=== PATIENT | male | born 1985 | race Two or more races ===

== ENCOUNTER 2017-08-03 09:37 | Emergency (ER) | payer SELFPAY ==
[2017-08-03] MEDS ORDERED: Ondansetron 4 MG Tab.DIS PO ONE (10:34)
--- NOTE | 2017-08-03 10:38 | EDM.PDOC ---
ED HPI GENERAL MEDICAL PROBLEM - General Chief Complaint: Gastrointestinal Problem Stated Complaint: SORETHRAOT,FLU-LIKE SYMPTOMS Time Seen by Provider: 08/03/17 10:05 Source of Information: Reports: Patient History Limitations: Reports: No Limitations - History of Present Illness INITIAL COMMENTS - FREE TEXT/NARRATIVE: HISTORY AND PHYSICAL: History of present illness: [Patient comes to the emergency room complaining of body aches, fatigue, fever, nausea and vomiting, headache and sore throat for the past 36 hours. Son is also with him with similar symptoms today. Other children have been ill recently but their symptoms have completely resolved. Patient has not checked his temperature but has felt feverish alternating with chills. Has had several episodes of vomiting as recent as this morning. Has muscle and joint aches and pains. No constipation diarrhea or abdominal pain. Nausea continues. Has had decreased appetite due to illness.] Review of systems: As per history of present illness and below otherwise all systems reviewed and negative. Past medical history: As per history of present illness and as reviewed below otherwise noncontributory. Surgical history: As per history of present illness and as reviewed below otherwise noncontributory. Social history: No reported history of drug or alcohol abuse. Family history: As per history of present illness and as reviewed below otherwise noncontributory. Physical exam: Gen.: Well-developed well-nourished male in no acute distress. Appears nontoxic and engages in conversation with examiner appropriately. HEENT: Atraumatic, normocephalic. TMs pearly vega without erythema. Eyes are injected and appeared tired. Oral mucous membranes are pink and moist. Tonsils are nurse moderately swollen with yellow thick exudate present. Lungs: Clear to auscultation, breath sounds equal bilaterally. No wheezing crackles or rales. Heart: S1S2, regular rate and rhythm. Abdomen: Soft, nondistended, nontender. Pelvis: Stable nontender. Genitourinary: Deferred. Rectal: Deferred. Extremities: Atraumatic, no abnormalities Neurovascular unremarkable. Neuro: Awake, alert, oriented. Motor and sensory unremarkable throughout. Exam nonfocal. Diagnostics: [Influenza swab, strep swab] Therapeutics: [Zofran 4 mg ODT] Impression: [Streptococcal pharyngitis] Plan: [Rx for Pen-VK is e-prescribed to [facility]. Supportive measures are discussed. Follow-up with PCP strict return precautions reviewed. Patient verbalized understanding of today's plan.] Definitive disposition and diagnosis as appropriate pending reevaluation and review of above. Generalized Pain Score (Numeric/FACES): 5 - Related Data Allergies Allergy/AdvReac Type Severity Reaction Status Date / Time No Known Allergies Allergy Verified 08/03/17 10:06 Home Meds: Home Meds Penicillin V Potassium [IJD: Penicillin V Potassium] 500 mg PO TID #30 tab 08/03 [Rx] Past Medical History - Past Health History Medical/Surgical History: Denies Medical/Surgical History - Past Surgical History GI Surgical History: Reports: Cholecystectomy Social & Family History - Tobacco Use Smoking Status *Q: Never Smoker - Caffeine Use Caffeine Use: Reports: Coffee, Energy Drinks - Recreational Drug Use Recreational Drug Use: No ED ROS ENT - Review of Systems Review Of Systems: ROS reveals no pertinent complaints other than HPI. ED EXAM, ENT - Physical Exam Exam: See Below Course - Vital Signs Last Recorded V/S: Last Vital Signs Temp 97.9 F 08/03/17 10:01 Pulse 100 08/03/17 10:01 Resp 20 08/03/17 10:01 BP 119/73 08/03/17 10:01 Pulse Ox 96 08/03/17 10:01 - Orders/Labs/Meds Meds: Medications Discontinued Medications Generic Name Dose Route Start Last Admin Trade Name [place] PRN Reason Stop Dose Admin Ondansetron HCl 4 mg 08/03/17 10:34 08/03/17 10:41 Zofran Odt PO 08/03/17 10:35 4 mg ONETIME ONE Administration Departure - Departure Time of Disposition: 11:00 Disposition: Home, Self-Care 01 Condition: Good Clinical Impression: Strep throat - Discharge Information Prescriptions: Penicillin V Potassium [IJD: Penicillin V Potassium] 500 mg PO TID #30 tab Referrals: PCP,None [Primary Care Provider] - Raúl Deleon MD [Resident] - Forms: ED Department Discharge, ED Department Discharge Additional Instructions: The following information is given to patients seen in the emergency department who are being discharged to home. This information is to outline your options for follow-up care. We provide all patients seen in our emergency department with a follow-up referral. The need for follow-up, as well as the timing and circumstances, are variable depending upon the specifics of your emergency department visit. If you don't have a primary care physician on staff, we will provide you with a referral. We always advise you to contact your personal physician following an emergency department visit to inform them of the circumstance of the visit and for follow-up with them and/or the need for any referrals to a consulting specialist. The emergency department will also refer you to a specialist when appropriate. This referral assures that you have the opportunity for follow-up care with a specialist. All of these measure are taken in an effort to provide you with optimal care, which includes your follow-up. Under all circumstances we always encourage you to contact your private physician who remains a resource for coordinating your care. When calling for follow-up care, please make the office aware that this follow-up is from your recent emergency room visit. If for any reason you are refused follow-up, please contact the [facility] emergency department at and asked to speak to the emergency department charge nurse. [facility] [address] [place] [id number] Follow-up with your primary care provider or at the clinic listed above in 48- 72 hours. Taken antibiotic as prescribed. Push fluids, get plenty of rest. Return to ER as needed as discussed.
== END 2017-08-03 11:35 | disposition home or self-care (01) ==
LOC: MW.ED 09:37
DX: J02.0 Streptococcal pharyngitis (principal)
CPT/HCPCS: 87804; 87880; 99283; A9270

== ENCOUNTER 2018-08-08 16:00 | Emergency (ER) | payer BC ==
--- NOTE | 2018-08-08 16:21 | EDM.PDOC ---
ED HPI GENERAL MEDICAL PROBLEM - General Chief Complaint: General Stated Complaint: TOOTHACHE Time Seen by Provider: 08/08/18 16:19 Source of Information: Reports: Patient History Limitations: Reports: No Limitations - History of Present Illness INITIAL COMMENTS - FREE TEXT/NARRATIVE: HISTORY AND PHYSICAL: History of present illness: Patient is a 33-year-old male who presents to the emergency room with complaints of dental pain. He states he had right upper dental pain 3 weeks and had initially made a dental appointment but had skipped this for unknown reason. He states that the right upper dental pain is now resolving but has pain to the left upper dental line. He tried to contact the dentist who encouraged him to take Tylenol and ibuprofen. He states he has been using this routinely but it still causes a lot of pain. He has not yet made an appointment for follow-up. He denies any fever, chills, chest pain, shortness of breath or cough. Denies any GI or symptoms. He has been eating and drinking appropriately. Review of systems: As per history of present illness and below otherwise all systems reviewed and negative. Past medical history: As per history of present illness and as reviewed below otherwise noncontributory. Surgical history: As per history of present illness and as reviewed below otherwise noncontributory. Social history: See social history for further information Family history: As per history of present illness and as reviewed below otherwise noncontributory. Physical exam: General: Well-developed and well nourished 33-year-old male. Alert and oriented. Nontoxic appearing and in no acute distress. HEENT: Atraumatic, normocephalic, pupils equal and reactive bilaterally, negative for conjunctival pallor or scleral icterus, mucous membranes moist, TMs normal bilaterally, throat clear, tooth #14 and 15 do appear erythematous along the upper gumline and tender with palpation, neck supple, nontender, trachea midline. No drooling or trismus noted. No meningeal signs. No hot potato voice noted. Lungs: Clear to auscultation, breath sounds equal bilaterally, chest nontender. Heart: S1S2, regular rate and rhythm without overt murmur Abdomen: Soft, nondistended, nontender. Negative for masses or hepatosplenomegaly. Negative for costovertebral tenderness. Pelvis: Stable nontender. Genitourinary: Deferred. Rectal: Deferred. Skin: Intact, warm, dry. No lesions or rashes noted. Extremities: Atraumatic, negative for cords or calf pain. Neurovascular unremarkable. Neuro: Awake, alert, oriented. Cranial nerves II through XII unremarkable. Cerebellum unremarkable. Motor and sensory unremarkable throughout. Exam nonfocal. Diagnostics: None Therapeutics: None Prescription: Pen VK Tramadol Impression: Dental abscess Plan: 1. Please take the medications as prescribed. 2. Tylenol and/or ibuprofen as needed for pain management. 3. Follow-up with a dentist for definitive care. Return to the ED as needed and as discussed. Definitive disposition and diagnosis as appropriate pending reevaluation and review of above. Left Upper Tooth/Teeth Pain Score (Numeric/FACES): 8 - Related Data Allergies Allergy/AdvReac Type Severity Reaction Status Date / Time No Known Allergies Allergy Verified 08/08/18 16:26 Home Meds: Home Meds Penicillin V Potassium [Veetids] 500 mg PO TID 10 Days #30 tab 08/08/18 [Rx] traMADol [Ultram] 50 mg PO Q6H PRN #15 tab 08/08/18 [Rx] Past Medical History - Past Health History Medical/Surgical History: Denies Medical/Surgical History - Past Surgical History GI Surgical History: Reports: Cholecystectomy Social & Family History - Caffeine Use Caffeine Use: Reports: Coffee, Energy Drinks ED ROS GENERAL - Review of Systems Review Of Systems: ROS reveals no pertinent complaints other than HPI. ED EXAM, GENERAL - Physical Exam Exam: See Below (See dication) Course - Vital Signs Last Recorded V/S: Last Vital Signs Temp 98.2 F 08/08/18 16:24 Pulse 66 08/08/18 16:24 Resp 18 08/08/18 16:24 BP 137/89 08/08/18 16:24 Pulse Ox 97 08/08/18 16:24 Departure - Departure Time of Disposition: 16:30 Disposition: Home, Self-Care 01 Clinical Impression: Dental abscess - Discharge Information Prescriptions: Penicillin V Potassium [Veetids] 500 mg PO TID 10 Days #30 tab traMADol [Ultram] 50 mg PO Q6H PRN #15 tab PRN Reason: Pain Instructions: Dental Abscess, [id number] Referrals: PCP,None [Primary Care Provider] - Forms: ED Department Discharge Additional Instructions: The following information is given to patients seen in the emergency department who are being discharged to home. This information is to outline your options for follow-up care. We provide all patients seen in our emergency department with a follow-up referral. The need for follow-up, as well as the timing and circumstances, are variable depending upon the specifics of your emergency department visit. If you don't have a primary care physician on staff, we will provide you with a referral. We always advise you to contact your personal physician following an emergency department visit to inform them of the circumstance of the visit and for follow-up with them and/or the need for any referrals to a consulting specialist. The emergency department will also refer you to a specialist when appropriate. This referral assures that you have the opportunity for follow-up care with a specialist. All of these measure are taken in an effort to provide you with optimal care, which includes your follow-up. Under all circumstances we always encourage you to contact your private physician who remains a resource for coordinating your care. When calling for follow-up care, please make the office aware that this follow-up is from your recent emergency room visit. If for any reason you are refused follow-up, please contact the [facility] Emergency Department at and asked to speak to the emergency department charge nurse. [facility] [address] [place] [address] [id number] [address] [address] 1. Please take the medications as prescribed. 2. Tylenol and/or ibuprofen as needed for pain management. 3. Follow-up with a dentist for definitive care. Return to the ED as needed and as discussed.
== END 2018-08-08 16:42 | disposition home or self-care (01) ==
LOC: MW.ED 16:00
DX: K04.7 Periapical abscess without sinus (principal); Z90.49 Acquired absence of other specified parts of digestive tract
CPT/HCPCS: 99282

== ENCOUNTER 2018-08-25 18:56 | Emergency (ER) | payer BC ==
--- NOTE | 2018-08-25 19:23 | EDM.PDOC ---
ED HPI GENERAL MEDICAL PROBLEM - General Chief Complaint: ENT Problem Stated Complaint: SORE THOAT, AND TEETH HURT Time Seen by Provider: 08/25/18 19:22 Source of Information: Reports: Patient History Limitations: Reports: No Limitations - History of Present Illness INITIAL COMMENTS - FREE TEXT/NARRATIVE: HISTORY AND PHYSICAL: History of present illness: Patient is a 33-year-old male who presents to emergency room today with concerns of sore throat and tooth pain. Patient states that his son was in the ED yesterday and had tested positive for strep throat. He states today he saw an oral surgeon but has to wait for surgery to get a tooth removed that is broken. He states that the tooth is swollen and is causing him significant pain. He states that he's had a sore throat since yesterday. That is tooth pain is significantly worse today. Patient denies fever, chills, difficulty swallowing, decreased appetite, nausea , vomiting, or any other GI or symptoms. Denies any health history. Review of systems: As per history of present illness and below otherwise all systems reviewed and negative. Past medical history: As per history of present illness and as reviewed below otherwise noncontributory. Surgical history: As per history of present illness and as reviewed below otherwise noncontributory. Social history: See social history for further information Family history: As per history of present illness and as reviewed below otherwise noncontributory. Physical exam: General: Well-developed and well-nourished 33-year-old male. Alert and oriented. Nontoxic appearing and in no acute distress. HEENT: Atraumatic, normocephalic, pupils equal and reactive bilaterally, negative for conjunctival pallor or scleral icterus, mucous membranes moist, TMs normal bilaterally, throat moderately erythematous with enlarged tonsils neck supple, nontender, trachea midline. No drooling or trismus noted. No meningeal signs. No hot potato voice noted. Tooth # 16 was cracked without any nerve root exposed. There is some mild edema surrounding the cracked tooth and up into the surrounding soft tissue without erythema. Lungs: Clear to auscultation, breath sounds equal bilaterally, chest nontender. Heart: S1S2, regular rate and rhythm without overt murmur Abdomen: Soft, nondistended, nontender. Negative for masses or hepatosplenomegaly. Negative for costovertebral tenderness. Pelvis: Stable nontender. Genitourinary: Deferred. Rectal: Deferred. Skin: Intact, warm, dry. No lesions or rashes noted. Extremities: Atraumatic, negative for cords or calf pain. Neurovascular unremarkable. Neuro: Awake, alert, oriented. Cranial nerves II through XII unremarkable. Cerebellum unremarkable. Motor and sensory unremarkable throughout. Exam nonfocal. Notes: Because patient has had contact with strep, we will treat accordingly and given an antibiotic that will also cover for the tooth. Tramadol was provided for use for moderate to severe pain. Discussed using Tylenol and ibuprofen for mild to moderate pain. Dental balls were also provided while in the emergency room for pain relief. Diagnostics: None Therapeutics: Dental balls Prescription: Augmentin, tramadol #15 Impression: Pharyngitis [place] tooth fracture Plan: 1. Please take the antibiotic as prescribed. Please get a new toothbrush once your antibiotics has been started to avoid re-contamination. Warm saltwater gargle and rinse and spit several times per day as able. 2. Tylenol and/or ibuprofen as needed for pain management. Tramadol for moderate to severe pain. This medication may cause drowsiness a do not take it will driving her needing to be functioning outside of the house. 3. Follow-up with your primary care provider in the next 1-2 days. Follow-up with your dentist as you already have planned for further evaluation and management of your wisdom tooth. Return to the ED as needed and as discussed. Definitive disposition and diagnosis as appropriate pending reevaluation and review of above. Left Upper Tooth/Teeth Pain Score (Numeric/FACES): 4 - Related Data Allergies Allergy/AdvReac Type Severity Reaction Status Date / Time No Known Allergies Allergy Verified 08/25/18 19:06 Home Meds: Home Meds Amoxicillin/Potassium Clav [Augmentin 875-125 Tablet] 1 each PO BID 10 Days #20 tablet 08/25/18 [Rx] traMADol [Ultram] 50 mg PO Q4H PRN #15 tab 08/25/18 [Rx] Past Medical History - Past Health History Medical/Surgical History: Denies Medical/Surgical History HEENT History: Reports: None Cardiovascular History: Reports: None Respiratory History: Reports: None Gastrointestinal History: Reports: None Genitourinary History: Reports: None Musculoskeletal History: Reports: None Neurological History: Reports: None Psychiatric History: Reports: None Endocrine/Metabolic History: Reports: None Hematologic History: Reports: None Immunologic History: Reports: None Oncologic (Cancer) History: Reports: None Dermatologic History: Reports: None - Infectious Disease History Infectious Disease History: Reports: None - Past Surgical History Head Surgeries/Procedures: Reports: None GI Surgical History: Reports: Cholecystectomy Social & Family History - Family History Family Medical History: Noncontributory - Tobacco Use Smoking Status *Q: Never Smoker Second Hand Smoke Exposure: No - Caffeine Use Caffeine Use: Reports: Coffee - Recreational Drug Use Recreational Drug Use: No ED ROS ENT - Review of Systems Review Of Systems: ROS reveals no pertinent complaints other than HPI. ED EXAM, ENT - Physical Exam Exam: See Below (see dictation) Course - Vital Signs Last Recorded V/S: Last Vital Signs Temp 97.4 F 08/25/18 19:06 Pulse 69 08/25/18 19:06 Resp 16 08/25/18 19:06 BP 112/79 08/25/18 19:06 Pulse Ox 97 08/25/18 19:06 - Orders/Labs/Meds Meds: Medications Discontinued Medications Generic Name Dose Route Start Last Admin Trade Name Freq PRN Reason Stop Dose Admin Benzocaine 2 each 08/25/18 19:26 08/25/18 19:56 Hurricaine One 20% MUCMEM 08/25/18 19:27 2 each ONETIME ONE Administration Lidocaine HCl 15 ml 08/25/18 19:26 08/25/18 19:56 Xylocaine 2% Viscous PO 08/25/18 19:27 15 ml ONETIME ONE Administration Departure - Departure Time of Disposition: 19:35 Disposition: Home, Self-Care 01 Clinical Impression: Tooth fracture Pharyngitis Qualifiers: Pharyngitis/tonsillitis etiology: unspecified etiology Qualified Code(s): J02.9 - Acute pharyngitis, unspecified - Discharge Information Prescriptions: Amoxicillin/Potassium Clav [Augmentin 875-125 Tablet] 1 each PO BID 10 Days #20 tablet traMADol [Ultram] 50 mg PO Q4H PRN #15 tab PRN Reason: Pain Instructions: Tooth Injuries, [id number], Pharyngitis, [id number] Referrals: PCP,None [Primary Care Provider] - Forms: ED Department Discharge Additional Instructions: The following information is given to patients seen in the emergency department who are being discharged to home. This information is to outline your options for follow-up care. We provide all patients seen in our emergency department with a follow-up referral. The need for follow-up, as well as the timing and circumstances, are variable depending upon the specifics of your emergency department visit. If you don't have a primary care physician on staff, we will provide you with a referral. We always advise you to contact your personal physician following an emergency department visit to inform them of the circumstance of the visit and for follow-up with them and/or the need for any referrals to a consulting specialist. The emergency department will also refer you to a specialist when appropriate. This referral assures that you have the opportunity for follow-up care with a specialist. All of these measure are taken in an effort to provide you with optimal care, which includes your follow-up. Under all circumstances we always encourage you to contact your private physician who remains a resource for coordinating your care. When calling for follow-up care, please make the office aware that this follow-up is from your recent emergency room visit. If for any reason you are refused follow-up, please contact the [facility] Emergency Department at and asked to speak to the emergency department charge nurse. [facility] [address] [place] [id number] [place] [address] 1. Please take the antibiotic as prescribed. Please get a new toothbrush once your antibiotics has been started to avoid re-contamination. Warm saltwater gargle and rinse and spit several times per day as able. 2. Tylenol and/or ibuprofen as needed for pain management. Tramadol for moderate to severe pain. This medication may cause drowsiness a do not take it will driving her needing to be functioning outside of the house. 3. Follow-up with your primary care provider in the next 1-2 days. Follow-up with your dentist as you already have planned for further evaluation and management of your wisdom tooth. Return to the ED as needed and as discussed.
[2018-08-25] MEDS ORDERED: Lidocaine 2% Viscous Solution 15 ML Cup PO ONE (19:26)
[2018-08-25] MEDS ORDERED: Benzocaine 20% Topical Spray UD MUCMEM ONE (19:26)
== END 2018-08-25 19:58 | disposition home or self-care (01) ==
LOC: MW.ED 18:56
DX: J02.9 Acute pharyngitis, unspecified (principal); K03.81 Cracked tooth
CPT/HCPCS: 99282; A9270